=== PATIENT | female | born 1945 | race Caucasian/White ===

== ENCOUNTER → 2018-08-26 | Outpatient (CLI) | payer OTHER, BC ==
[~2018-08-26] VITALS: Ht 165.1 cm; Wt 72.6 kg
[~2018-08-26] MED LIST: JANUMET 50-1,01 EACH PO; LEVEMIR SUBQ; LOSARTAN POTAS100 MG PO; TRAZODONE HCL50 MG PO; VESICARE10 M1 PO
--- NOTE | 2018-08-27 17:08 | PATH ---
[facility] [place] [address] PATHOLOGY RPT PROCEDURE Name: ROCHELLE OROPEZA Room #: REG MARVA Asher.#: [id number] Admission: 08/26/18 Date of : 45 Discharge: Report #: [id number] Path Case #: [id number] [facility] Accession Number: [id number] . 01 Material submitted: . PART A: TRANSVERSE COLON POLYP PART B: ASCENDING COLON POLYP . 01 Clinician provided ICD-10: y . 01 Clinical history: . Pre-op diagnosis: Family history of rectal cancer, history of colon polyp Post-op diagnosis: Colon polyps, internal hemorrhoids . 02 Diagnosis: A. Polyp x4, transverse colon polyp, endoscopic biopsy: - Tubular adenoma identified in multiple fragments. - Negative for high-grade dysplasia. . B. Polyp, ascending colon polyp, endoscopic biopsy: - Tubular adenoma. - Negative for high-grade dysplasia. (IUV:marta; 08/27/2018) QMS/08/27/2018 . 02 Electronically signed: . Kalie Hopkins MD, Pathologist NPI- [id number] . 01 Gross description: . A. The specimen is received in formalin, labeled "Rochelle Oropeza, transverse colon polyp x4". Received are six segments of pale ferraro soft tissue ranging in size from 0.2 to 0.5 cm in maximum dimensions. The specimen is submitted entirely in cassette A1. . B. The specimen is received in formalin, labeled "Rochelle Oropeza, ascending colon polyp". Received is a segment of pale ferraro soft tissue measuring 0.4 cm in maximum dimensions. The specimen is submitted entirely in cassette B1. (CAA; 08/26/2018) QAC/QAC . 02 Pathologist provided ICD-10: D12.3, D12.2 . 02 [place] [address] PATHOLOGY RPT PROCEDURE Name: ROCHELLE OROPEZA Room #: REG CLI [facility].#: [id number] Admission: 08/26/18 Date of : 45 Discharge: Report #: [id number] Path Case #: [id number] Specimen Comment: A courtesy copy of this report has been sent to Specimen Comment: [phone], . Specimen Comment: Report sent to / DR CRUZ Performed at: [address], [place], [place] [id number] MD Chilango Greer MD Phone: [phone] Performed at: [address] [id number] MD Kalie Hopkins MD Phone: [phone]
== END | disposition home or self-care (01) ==
LOC: GI 08:06
DX: Z12.11 Encounter for screening for malignant neoplasm of colon (principal); Z86.010 Personal history of colon polyps; Z80.0 Family history of malignant neoplasm of digestive organs; D12.3 Benign neoplasm of transverse colon; D12.2 Benign neoplasm of ascending colon; K64.8 Other hemorrhoids; I10 Essential (primary) hypertension; E78.5 Hyperlipidemia, unspecified; G47.33 Obstructive sleep apnea (adult) (pediatric); G62.9 Polyneuropathy, unspecified; E11.9 Type 2 diabetes mellitus without complications; M06.9 Rheumatoid arthritis, unspecified; Z98.890 Other specified postprocedural states; Z91.040 Latex allergy status; Z86.73 Personal history of transient ischemic attack (TIA), and cerebral infarction without residual deficits; Z79.4 Long term (current) use of insulin; Z79.899 Other long term (current) drug therapy; Z90.49 Acquired absence of other specified parts of digestive tract; Z90.710 Acquired absence of both cervix and uterus
CPT/HCPCS: 62110; 62900

== ENCOUNTER → 2019-10-14 | Outpatient (CLI) | payer OTHER, BC | LOC: HYPER 08:21 | DX: T81.89XA Other complications of procedures, not elsewhere classified, initial encounter (principal); E11.622 Type 2 diabetes mellitus with other skin ulcer; L98.491 Non-pressure chronic ulcer of skin of other sites limited to breakdown of skin; L03.311 Cellulitis of abdominal wall; E11.40 Type 2 diabetes mellitus with diabetic neuropathy, unspecified; M19.90 Unspecified osteoarthritis, unspecified site; E78.00 Pure hypercholesterolemia, unspecified; I10 Essential (primary) hypertension; M85.80 Other specified disorders of bone density and structure, unspecified site; G47.30 Sleep apnea, unspecified; G47.00 Insomnia, unspecified; F41.9 Anxiety disorder, unspecified; Z86.73 Personal history of transient ischemic attack (TIA), and cerebral infarction without residual deficits; Z86.14 Personal history of Methicillin resistant Staphylococcus aureus infection; Z79.84 Long term (current) use of oral hypoglycemic drugs; Z90.710 Acquired absence of both cervix and uterus; Y83.8 Other surgical procedures as the cause of abnormal reaction of the patient, or of later complication, without mention of misadventure at the time of the procedure; Y92.89 Other specified places as the place of occurrence of the external cause ==

== ENCOUNTER → 2019-10-21 | Outpatient (CLI) | payer OTHER, BC | LOC: HYPER 14:10 | DX: T81.89XD Other complications of procedures, not elsewhere classified, subsequent encounter (principal); E11.622 Type 2 diabetes mellitus with other skin ulcer; L98.491 Non-pressure chronic ulcer of skin of other sites limited to breakdown of skin; L03.311 Cellulitis of abdominal wall; E11.40 Type 2 diabetes mellitus with diabetic neuropathy, unspecified; E78.00 Pure hypercholesterolemia, unspecified; I10 Essential (primary) hypertension; G47.30 Sleep apnea, unspecified; M19.90 Unspecified osteoarthritis, unspecified site; M85.88 Other specified disorders of bone density and structure, other site; F41.9 Anxiety disorder, unspecified; Z86.73 Personal history of transient ischemic attack (TIA), and cerebral infarction without residual deficits; Z79.84 Long term (current) use of oral hypoglycemic drugs; Y83.8 Other surgical procedures as the cause of abnormal reaction of the patient, or of later complication, without mention of misadventure at the time of the procedure ==

== ENCOUNTER → 2019-11-04 | Outpatient (CLI) | payer OTHER, BC | LOC: HYPER 14:01 | DX: T81.89XD Other complications of procedures, not elsewhere classified, subsequent encounter (principal); E11.622 Type 2 diabetes mellitus with other skin ulcer; L98.491 Non-pressure chronic ulcer of skin of other sites limited to breakdown of skin; L03.311 Cellulitis of abdominal wall; B95.62 Methicillin resistant Staphylococcus aureus infection as the cause of diseases classified elsewhere; E11.40 Type 2 diabetes mellitus with diabetic neuropathy, unspecified; M19.90 Unspecified osteoarthritis, unspecified site; E78.00 Pure hypercholesterolemia, unspecified; I10 Essential (primary) hypertension; M85.80 Other specified disorders of bone density and structure, unspecified site; G47.30 Sleep apnea, unspecified; F41.9 Anxiety disorder, unspecified; Z86.73 Personal history of transient ischemic attack (TIA), and cerebral infarction without residual deficits; Z79.84 Long term (current) use of oral hypoglycemic drugs; Y83.8 Other surgical procedures as the cause of abnormal reaction of the patient, or of later complication, without mention of misadventure at the time of the procedure ==

== ENCOUNTER → 2021-09-12 | Outpatient (CLI) | payer OTHER, BC ==
[~2021-09-12] VITALS: Ht 167.6 cm; Wt 74.8 kg
[~2021-09-12] MED LIST changes: +ATORVASTATIN CA40 MG PO; +CHLORTHALIDONE25 MG PO; +DULOXETINE HCL30 MG PO; +JANUVIA100 MG PO; -LEVEMIR SUBQ; +LEVEMIR100 UNIT/1 SUBQ; +REMERON15 M2 PO
--- NOTE | 2021-09-16 12:07 | PATH ---
[facility] [place] [address] PATHOLOGY RPT PROCEDURE Name: ROCHELLE OROPEZA Room #: REG [facility] Tr.Parker.#: [id number] Admission: 09/12/21 Date of : 45 Discharge: Report #: [id number] Path Case #: [id number] [facility] Accession Number: [id number] . 01 Material submitted: . PART A: colon - TRANSVERSE COLON POLYP X2. Modifiers: transverse PART B: colon - DESCENDING COLON POLYP. Modifiers: descending . 01 Clinical history: . COLONOSCOPY HX CRC1 . 02 Diagnosis: A. Large bowel "transverse colon polyps x2", biopsy: - Tubular adenoma; negative for high grade dysplasia and malignancy. . B. Large bowel "descending colon polyp", biopsy: - Polypoid segment of large bowel mucosa with focal hyperplastic surface change, mucosal edema and increased inflammatory cells within lamina propria, suggestive of inflammatory polyp. - Negative for dysplasia and malignancy. . (RENEE:hank; 09/13/2021) QLM 09/13/2021 1745 Local . 02 Electronically signed: . Timur Haro MD, Pathologist NPI- [id number] . 01 Gross description: . A. The specimen is received in formalin, labeled "Rochelle Oropeza, transverse colon". Received are 2 segments of pale ferraro tissue ranging in size from 0.8 to 0.9 cm in maximum dimensions. The specimen is submitted entirely in cassette A1. . B. The specimen is received in formalin, labeled "[place], Rochelle, descending colon polyp". Received is a segment of pale ferraro tissue measuring 0.4 cm in maximum dimensions. The specimen is submitted entirely in cassette B1.([facility]; 09/12/2021) [facility] 09/12/2021 1627 Local . 02 Pathologist provided ICD-10: D12.3, K52.9 . 02 CPT . [id number], [id number] Specimen Comment: A courtesy copy of this report has been sent to [phone], [place] [address] PATHOLOGY RPT PROCEDURE Name: ROCHELLE OROPEZA Room #: REG Ramy Cain#: [id number] Admission: 09/12/21 Date of : 45 Discharge: Report #: [id number] Path Case #: [id number] Specimen Comment: [phone] Specimen Comment: Report sent to / DR PIZANO Specimen Comment: A duplicate report has been generated due to demographic updates. Performed at: 01 [facility] [address] [id number] MD Sam Huang MD Phone: [phone] Performed at: 02 [facility] [address] [id number] MD Raz Rivera MD Phone: [phone]
== END ==
LOC: GI 08:21
PROVIDERS: ATTEND Internal Medicine Gastroenterology
DX: K52.9 Noninfective gastroenteritis and colitis, unspecified (principal); D12.3 Benign neoplasm of transverse colon; K63.89 Other specified diseases of intestine; I10 Essential (primary) hypertension; E78.5 Hyperlipidemia, unspecified; E11.9 Type 2 diabetes mellitus without complications; G47.30 Sleep apnea, unspecified; M19.90 Unspecified osteoarthritis, unspecified site; Z90.49 Acquired absence of other specified parts of digestive tract; Z90.710 Acquired absence of both cervix and uterus; Z98.890 Other specified postprocedural states; Z86.010 Personal history of colon polyps
CPT/HCPCS: 62110; 62900